=== PATIENT | female | born 1955 | race Two or more races ===

== ENCOUNTER 2017-05-15 21:31 | Emergency (ER) | payer OTHER ==
[~2017-05-15] VITALS: Ht 160 cm; Wt 72.0 kg
[2017-05-15] MEDS ORDERED: PLEASE ENTER ALLERGIES MC SCH ×2 (22:00)
[2017-05-15] MEDS ORDERED: ACETAMINOPHEN 325 MG TABLET PO ONE (22:00)
[2017-05-15] MEDS ORDERED: IBUPROFEN 200 MG TABLET PO ONE (22:00)
[2017-05-15] MEDS ORDERED: IBUPROFEN 200 MG TABLET ONE (22:20)
[2017-05-15] MEDS ORDERED: ACETAMINOPHEN 325 MG TABLET ONE (22:20)
[2017-05-15] MEDS ORDERED: SODIUM CHLORIDE 0.9% 1,000ML IVBOLUS ONE (23:00)
[2017-05-15 23:19] LABS: ASPARTATE AMINO TRANSFERASE 32 U/L (15-37); BLOOD UREA NITROGEN 10 mg/dL (7-18)
[2017-05-16 02:02] VITALS: BP 109/56
== END 2017-05-16 02:04 | disposition home or self-care (01) ==
LOC: ED 05-16 01:31
DX: J20.9 Acute bronchitis, unspecified (principal); B34.9 Viral infection, unspecified; R73.9 Hyperglycemia, unspecified
CPT/HCPCS: 36415; 71020; 80053; 81001; 83605; 84145; 85025; 87040; 87086; 96360; 99285; J7030